=== PATIENT | female | born 1970 | race Caucasian/White ===

== ENCOUNTER 2023-01-20 15:34 | Emergency (ER) | payer OTHER, SELFPAY ==
--- NOTE | 2023-01-20 15:38 | ED.FEMALEGU ---
HPI - Female Genitourinary General Chief complaint: Urogenital-Female Stated complaint: FLANK PAIN Time Seen by Provider: 01/20/23 15:39 Source: patient and RN notes reviewed History of Present Illness HPI Narrative: Patient is a 52-year-old female who presents to urgent care with complaints of right flank pain. Patient states the femur for approximately 1 week. Denies any urinary symptoms such as urgency, frequency, blood in the urine. Patient states that she has always had a trace amount of blood in the urine and was seen by urologist and all the testing came back negative. Patient denies any abdominal pain, nausea, vomiting. Denies any history of kidney stones. Patient denies any recent strenuous activity or heavy lifting. No other acute complaints. No acute distress noted. Patient aware of plan of care. Some parts of this dictation were generated by voice recognition software and may contain typographical and/or grammatical inaccuracies. Related Data Home Medications Medication Instructions Recorded Confirmed buspirone 7.5 mg tablet mg 10/15/19 liraglutide 0.6 mg/0.1 mL (18 mg/3 mg subcut 10/15/19 10/15/19 mL) subcutaneous pen injector (Victoza 3-Jimy) valsartan 160 tablet 10/15/19 mg-hydrochlorothiazide 25 mg tablet Allergies Allergy/AdvReac Type Severity Reaction Status Date / Time lisinopril Allergy Unknown Cough Verified 01/20/23 16:03 Review of Systems Review of Systems: CONSTITUTIONAL: Denies fever, chills, or sweats. EYES: Denies visual changes, redness, or discharge. ENT: Denies rhinorrhea, congestion, sore throat, or otalgia. CARDIOVASCULAR: Denies chest pain, palpitations, or edema. RESPIRATORY: Denies cough or dyspnea. GASTROINTESTINAL: Denies abdominal pain, nausea, vomiting, or diarrhea. GENITOURINARY: Denies dysuria or hematuria. SKIN: Denies rash or itching. MUSCULOSKELETAL: Denies back pain, joint pain, or myalgia. Reports right-sided flank pain NEUROLOGIC: Denies headache, numbness, or weakness. All other systems reviewed are negative, except as documented in HPI. [facility] Family History Family History (System 10/17/20 @ 15:01 by Marcello Lara) Father Hypertension Family history of coronary artery disease Other Family history of cardiovascular disease Family history of chronic obstructive pulmonary disease Social History Social History (System 10/17/20 @ 15:01 by Marcello Lara) Smoking status: Never smoker Alcohol intake: never Comments At the time of my signature, I reviewed and agree with the nursing past medical, surgical, social, and family history. There is no relevant family history pertinent to the patient complaint. Exam Narrative: GENERAL: This is a well-nourished, well-developed patient, in no apparent distress. HEAD: normocephalic, atraumatic. EYES: PERRL. Sclera clear/white. Vision is grossly intact. EARS: External ears normal NOSE: External nose normal with no obvious nasal discharge, nares without redness, no rhinorrhea. THROAT: Mucous membranes moist, posterior pharynx clear. NECK: Neck supple RESPIRATORY: Clear to auscultation. Breath sounds equal bilaterally. No wheezes, rales, or rhonchi. GASTROINTESTINAL: Abdomen soft, non-tender, nondistended. Bowel sounds are active. SKIN: warm, intact with no suspicious lesions or rash, good texture and turgor. NEURO: awake, alert, and oriented to person, place and time. There were no obvious focal neurologic abnormalities. EXTREMITIES: No clubbing, cyanosis, or edema. BACK: Right CVA tenderness exacerbated with movement Course Course Level of Care: Express Care Visit Vital Signs Vital signs: Vital Signs Temperature 98.2 F 01/20/23 15:42 Pulse Rate 76 01/20/23 15:42 Respiratory Rate 16 01/20/23 15:42 Blood Pressure 140/85 01/20/23 15:42 Pulse Oximetry 97 01/20/23 15:42 Oxygen Delivery Room Air 01/20/23 15:42 Temperature 98.2 F 01/20/23 15:42 Pulse Rate 76
[2023-01-20 15:42] VITALS: BP 140/85; PULSE 76; RESP 16; TEMP 36.8; O2SAT 97
== END 2023-01-20 16:16 | disposition home or self-care (01) ==
PROVIDERS: Emergency Provider Nurse Practitioner Family; PCP Family Medicine Sports Medicine
DX: R10.9 Unspecified abdominal pain (principal); E78.00 Pure hypercholesterolemia, unspecified; I10 Essential (primary) hypertension
CPT/HCPCS: 81003; 99203; G0463

== ENCOUNTER 2023-06-27 19:01 | Emergency (ER) | payer OTHER, SELFPAY ==
--- NOTE | 2023-06-27 19:07 | ED.EAR ---
HPI - Ear Problem General Chief complaint: Ear Stated complaint: Head cold;Earache Time Seen by Provider: 06/27/23 19:15 Source: patient and RN notes reviewed Mode of arrival: ambulatory Limitations: no limitations History of Present Illness HPI Narrative: 52-year-old female presents with concern for 2-3 day history of nasal congestion, rhinorrhea, sinus pain, ear pain and pressure. She reports she has tried Sudafed and ibuprofen with little relief. She denies fever, aches, chills, sweats. MD Complaint: ear pain Related Data Home Medications Medication Instructions Recorded Confirmed buspirone 7.5 mg tablet 7.5 mg PO DAILY 10/15/19 06/27/23 valsartan 160 1 tablet PO DAILY 06/27/23 06/27/23 mg-hydrochlorothiazide 25 mg tablet Allergies Allergy/AdvReac Type Severity Reaction Status Date / Time lisinopril Allergy Unknown Cough Verified 06/27/23 19:06 Review of Systems Review of Systems: CONSTITUTIONAL: Denies malaise, chills, sweats, or fever. EYES: Denies visual changes, redness, or discharge. ENT: Reports rhinorrhea, congestion, sinus pain, otalgia CARDIOVASCULAR: Denies chest pain, palpitations, or edema. RESPIRATORY: Reports cough. Denies dyspnea. GASTROINTESTINAL: Denies abdominal pain, nausea, vomiting, diarrhea SKIN: Denies rash or itching. MUSCULOSKELETAL: Denies myalgia. NEUROLOGIC: Denies headache. All systems reviewed & are unremarkable except as noted in HPI and below PMFSH Family History Family History (System 10/17/20 @ 15:01 by Marcello Lara) Father Hypertension Family history of coronary artery disease Other Family history of cardiovascular disease Family history of chronic obstructive pulmonary disease Social History Social History (System 10/17/20 @ 15:01 by Marcello Lara) Smoking status: Never smoker Alcohol intake: never Comments At time of signature, agree with nursing past medical, surgical, social and family history. There is no relevant family history pertinent to the presenting complaint Exam Narrative: GENERAL: Well-appearing, well-nourished, and in no acute distress. HEAD: Normocephalic EYES: PERRLA, conjunctivae clear ENT: Nares clear, turbinates edematous and erythematous, clear discharge. Mucous membranes moist. TM pearly crawford with dull light reflex bilaterally; no tragal tenderness. Oropharynx not erythematous without lesions. Tonsils not enlarged and without exudate, no drooling, no hoarseness, no trismus, uvula midline. NECK: Supple. No lymphadenopathy CHEST: Clear to auscultation, breath sounds equal. No wheezing, rhonchi, rales, or stridor. No respiratory distress, speaks in full sentences. HEART: Regular rate and rhythm. No murmur heard. SKIN: Warm, dry, no rash. NEURO: Alert and oriented x3. PSYCH: Normal mood and affect Course Course Emergency Course: Patient is aware of diagnosis, understands and agrees to treatment plan. Anticipatory guidance given. Patient agrees to follow-up as directed and is aware of reasons to seek care at the emergency department. Portions of this record may have been created with voice recognition software Level of Care: Express Care Visit Vital Signs Vital signs: Reviewed. Critical Care Time Critical Care Time Critical Care Time: No Discharge Plan Discharge Clinical Impression: Upper respiratory infection with cough and congestion Patient Disposition: Home, Self-Care Condition: Stable Instructions: Upper Respiratory Infection (ED) Additional Instructions: Viral illness may last between 7-21 days; antibiotics do not cure viral illness and are NOT recommended at this time. Recommend antihistamine such as Benadryl at night time and Zyrtec or Salma during the day Cough syrup may cause drowsiness; avoid driving or take it at night time. Flonase nasal spray, 2 sprays in each nostril once daily Also, recommend symptomatic treatment includes: rest, fluids, and increase humidity of the air at home.
[2023-06-27 19:09] VITALS: BP 138/79; PULSE 79; RESP 16; TEMP 36.4; O2SAT 96
[2023-06-27 19:11] VITALS: BP 138/79; PULSE 79; RESP 16; TEMP 36.4; O2SAT 96
== END 2023-06-27 19:24 | disposition home or self-care (01) ==
PROVIDERS: Emergency Provider Nurse Practitioner; PCP Family Medicine Sports Medicine
DX: J06.9 Acute upper respiratory infection, unspecified (principal); R05.9 Cough, unspecified; I10 Essential (primary) hypertension; E78.00 Pure hypercholesterolemia, unspecified
CPT/HCPCS: 99213; G0463

== ENCOUNTER 2024-10-03 12:58 | Outpatient (CLI) | payer OTHER, SELFPAY ==
--- NOTE | ~2024-10-03 | MR_ITS ---
MRI of the lumbar spine Clinical History: Back pain Technique: Axial T2-weighted images, and sagittal T1-weighted, T2-weighted, and T2 fat-sat images wer e acquired. Findings: There is no fracture or subluxation of the lumbar spine. Vertebral bodies maintain normal h eight and alignment. No bone marrow signal abnormality seen. At L1-L2, L2-L3, L3-L4, there is no disc bulge or herniation. There are moderate facet joint degenera tive changes at these levels. No spinal canal stenosis or neural foraminal narrowing at these levels. At L4-L5, there is mild disc desiccation without disc bulge or herniation. There is moderate to advan sophia facet arthropathy. No central canal stenosis or neural foraminal narrowing. At L5-S1, there is no disc bulge or herniation. There is moderate facet arthropathy. No central canal stenosis or neural foraminal narrowing. Paravertebral soft tissues are unremarkable. Impression: Facet joint degenerative changes throughout the lumbar spine, and minimal degenerative disc changes, but no spinal canal stenosis or neural foraminal narrowing. Reviewed, dictated and finalized at [facility]. [address] ADMINISTRATOR Impression: Facet joint degenerative changes throughout the lumbar spine, and minimal degen erative disc changes, but no spinal canal stenosis or neural foraminal narrowin nohemy
== END 2024-10-03 12:59 | disposition home or self-care (01) ==
LOC: GOSHIMG 12:59
PROVIDERS: PCP Family Medicine Sports Medicine; Visit Provider Nurse Practitioner Family
DX: M54.50 Low back pain, unspecified (principal)
CPT/HCPCS: 72148

== ENCOUNTER 2024-12-05 13:35 | Emergency (ER) | payer OTHER, SELFPAY ==
--- NOTE | ~2024-12-05 | XR_ITS ---
EXAMINATION: XR chest 2V DATE: 12/05/2024 14:05 INDICATION: Cough and fever. TECHNIQUE: Frontal and lateral views of the chest were obtained. COMPARISON: None. FINDINGS: There is no pneumonia, pleural effusion, or pneumothorax. Cardiomegaly is noted. IMPRESSION: 1. Cardiomegaly. Reviewed, dictated and finalized at location A. DENT DIRECTOR IMPRESSION: 1. Cardiomegaly.
--- NOTE | 2024-12-05 13:37 | ED.URI ---
HPI - URI/Sore Throat General Chief Complaint: Upper Respiratory Infection Stated Complaint: Fever Source: patient and RN notes reviewed Mode of arrival: ambulatory Limitations: no limitations History of Present Illness HPI Narrative: Patient is a 54-year-old female who presents to the [facility] with complaints coughing congestion since . Patient endorses a frequent nonproductive cough that is occasionally productive. She reports chest congestion. Denies shortness of breath. Patient also reports nasal congestion, headache, and generalized body aches. States that her mother was sick with similar symptoms and diagnosed with pneumonia. She reports fevers but states that she has never taken her temperature but has the sweats and chills that go along with fever. Related Data Home Medications ?Medication ?Instructions ?Recorded ?Confirmed ?Last Taken ?Type buspirone 7.5 mg tablet 7.5 mg PO DAILY 10/15/19 06/27/23 Unknown History valsartan 160 1 tablet PO DAILY 06/27/23 06/27/23 Unknown History mg-hydrochlorothiazide 25 mg tablet Allergies Allergy/AdvReac Type Severity Reaction Status Date / Time lisinopril Allergy Unknown Cough Verified 12/05/24 13:45 Review of Systems Review of Systems: CONSTITUTIONAL: Reports fever, chills, and sweats. EYES: Denies visual changes, redness, or discharge. ENT: Denies otalgia and sore throat. Reports congestion. CARDIOVASCULAR: Denies chest pain, palpitations, or edema. RESPIRATORY: Reports cough but denies dyspnea. GASTROINTESTINAL: Denies abdominal pain, nausea, vomiting, or diarrhea. GENITOURINARY: Denies dysuria or hematuria. SKIN: Denies rash or itching. MUSCULOSKELETAL: Denies back pain, joint pain, or myalgia. NEUROLOGIC: Reports headache but denies numbness or weakness. Pertinent positives per HPI. COUNT INCLUDES THE [facility] Family History Family History Father Hypertension Family history of coronary artery disease Other Family history of cardiovascular disease Family history of chronic obstructive pulmonary disease Social History Social History Smoking status: Never smoker Alcohol intake: never Comments At the time of my signature, I reviewed and agree with the nursing past medical, surgical, social, and family history. There is no relevant family history pertinent to the patient complaint. Exam Narrative: GENERAL: This is a well-nourished, well-developed patient, in no apparent distress. HEAD: normocephalic, atraumatic. EYES: PERRL. Sclera clear/white. Vision is grossly intact. EARS: External ears normal, auditory canals clear and without drainage, TMs normal without perforation. Hearing grossly intact. NOSE: External nose normal with no obvious nasal discharge, nares without redness, no rhinorrhea. THROAT: Mucous membranes moist, posterior pharynx clear. NECK: Neck supple, non-tender without lymphadenopathy, masses or thyromegaly. CARDIOVASCULAR: Regular rate and rhythm without murmurs, gallops, or rubs. RESPIRATORY: Clear to auscultation. Breath sounds equal bilaterally. No wheezes, rales, or rhonchi. GASTROINTESTINAL: Abdomen soft, non-tender, nondistended. Bowel sounds are active. No hepato-splenomegaly, or palpable masses. No guarding. SKIN: warm, intact with no suspicious lesions or rash, good texture and turgor. NEURO: awake, alert, and oriented to person, place and time. There were no obvious focal neurologic abnormalities. EXTREMITIES: No clubbing, cyanosis, or edema. No joint tenderness, effusion, or edema noted. BACK: Nontender without deformity or crepitance. No flank tenderness. Course Course Level of Care: Express Care Visit Vital Signs Vital signs: Vital Signs Temperature 98.2 F 12/05/24 13:41 Pulse Rate 74 12/05/24 13:41 Respiratory Rate 16 12/05/24 13:41 Blood Pressure 143/80 H 12/05/24 13:41 Pulse Oximetry 96 12/05/24 13:41 Temperature 98.2 F 12/05/24 13:41 Pulse Rate 74 12/05/24 13:41 Respiratory Rate 16 12/05/24 13:41 Blood Pressure 143/80 H 12/05/24 13:41 Pulse Oximetry 96 12/05/24 13:41 Reviewed MDM - URI/Sore Throat MDM Narrative Medical decision making narrative: Take steroids as directed. May use the inhaler every 4-6 hours as needed for coughing. Increase fluids at home. Avoid any and all smoke. May use a humidifier in the bedroom. Increase your Vitamin C. Follow-up with personal physician in 2-5 days. Differential Diagnosis Differential diagnosis: Likely upper respiratory infection, viral infection, influenza and other (covid, pneumonia) Lab Data Attestation: I reviewed the patient's lab results. Imaging Data Attestation: I personally reviewed and interpreted this imaging study as follows: Radiologist's impression: Close Chest X-Ray (Signed) Alec Brown - 12/05/24 Launch?[facility] [address] [place] [address] XRay Report Signed Patient: Ginny Guido : 1970 MR#: [id number] Age: 54 Acct:[id number] Loc: [id number] ADM Date: 12/05/24Attending Dr: Ordering Physician: Nicole Corado APRN Date of Service: 12/05/24 Procedure(s): XR chest 2V Accession Number(s): [id number] cc: Nicole Corado APRN; PASSPORT APPLICATION EXAMINER PHYSICIAN~ EXAMINATION: XR chest 2V DATE: 12/05/2024 14:05 INDICATION: Cough and fever. TECHNIQUE: Frontal and lateral views of the chest were obtained. COMPARISON: None. FINDINGS: There is no pneumonia, pleural effusion, or pneumothorax. Cardiomegaly is noted. IMPRESSION: 1. Cardiomegaly. Reviewed, dictated and finalized at location A. OR TECHNICAL TRAINER Please be advised this is a medical document. It is intended for [id number] communication. It is written in medical language and may contain unfamiliar abbreviations or verbiage. Medical documents are intended to carry relevant information, facts as evident, and the clinical opinion of the practitioner at the time of the encounter. This report may have been done utilizing a voice recognition system. Attempts have been made to correct errors. However, there may be uncorrected grammatical, spelling, and recognition errors present. The file time of this note does not necessarily represent the time of service. Dictated By: Alec Brown MD 12/05/24 1408 Signed By: <Electronically signed by Alec Brown MD in OV> 12/05/24 1409 Critical Care Time Critical Care Time Critical Care Time: No Discharge Plan Discharge Clinical Impression: Acute viral bronchitis Patient Disposition: Home, Self-Care Condition: Stable Instructions: Acute Bronchitis (ED) Additional Instructions: Take steroids as directed. May use the inhaler every 4-6 hours as needed for coughing. Increase fluids at home. Avoid any and all smoke. May use a humidifier in the bedroom. Increase your Vitamin C. Follow-up with personal physician in 2-5 days. Patient Language: Malaysian Prescriptions: New prednisone 50 mg tablet 50 mg PO DAILY 5 Days Qty: 5 0RF albuterol sulfate [Ventolin HFA] 90 mcg/actuation HFA aerosol inhaler 2 puff inhalation QID PRN (Reason: shortness of breath or wheezing) Qty: 6.7 0RF benzonatate 100 mg capsule 100 mg PO TID PRN (Reason: cough) Qty: 20 0RF fluticasone propionate [24 Hour Allergy Relief] 50 mcg/actuation spray,suspension 1 spray intranasal BID Qty: 16 0RF Rx Instructions: administer into each nostril No Action buspirone 7.5 mg tablet 7.5 mg PO DAILY valsartan-hydrochlorothiazide 160-25 mg tablet 1 tablet PO DAILY fluticasone propionate [Flonase Allergy Relief] 50 mcg/actuation spray,suspension 2 spray NASAL DAILY 14 Days Qty: 15.8 0RF Rx Instructions: administer into each nostril Follow-up/Referrals: PHYSICIAN,PASSPORT APPLICATION EXAMINER [Primary Care Provider] - Time of Disposition: 14:29
[2024-12-05 13:41] VITALS: BP 143/80; PULSE 74; RESP 16; TEMP 36.8; O2SAT 96
[2024-12-05 14:35] LABS: EDCOVIDSCREEN Negative (Negative); EDINFLUASCREEN Negative (Negative); EDINFLUBSCREEN Negative (Negative)
== END 2024-12-05 14:32 | disposition home or self-care (01) ==
PROVIDERS: Emergency Provider Nurse Practitioner
DX: J20.8 Acute bronchitis due to other specified organisms (principal); Z20.822 Contact with and (suspected) exposure to COVID-19; I10 Essential (primary) hypertension; E78.00 Pure hypercholesterolemia, unspecified
CPT/HCPCS: 71046; 87426; 87804; 99213; G0463

== ENCOUNTER 2025-03-20 13:59 | Emergency (ER) | payer OTHER, SELFPAY ==
[2025-03-20 14:11] VITALS: BP 162/93; PULSE 85; RESP 18; TEMP 37.1; O2SAT 99
--- NOTE | 2025-03-20 14:21 | ED_ITS ---
HPI - Dental/Oral General Chief complaint: Dental/Oral Stated complaint: Tooth Pain Time Seen by Provider: 03/20/25 14:21 Source: patient, RN notes reviewed and old records reviewed Mode of arrival: ambulatory Limitations: no limitations History of Present Illness HPI Narrative: 54-year-old female presents to the [facility] with complaints of pain and swelling to the left lower jaw. Has poor dentition. States it started 2-3 days ago Related Data Home Medications ?Medication ?Instructions ?Recorded ?Confirmed ?Last Taken ?Type buspirone 7.5 mg tablet 7.5 mg PO DAILY 10/15/19 06/27/23 Unknown History valsartan 160 1 tablet PO DAILY 06/27/23 06/27/23 Unknown History mg-hydrochlorothiazide 25 mg tablet Allergies Allergy/AdvReac Type Severity Reaction Status Date / Time lisinopril Allergy Unknown Cough Verified 03/20/25 14:09 Review of Systems Review of Systems: All systems reviewed & are unremarkable except as noted in HPI and below Constitutional: Constitutional: Reports no additional constitutional complaints ENT: Reports as per HPI and Reports dental pain Cardiovascular: Cardiovascular: Reports no additional cardiovascular complaints, Denies chest pain and Denies dyspnea Respiratory: Respiratory: Reports no additional respiratory complaints, Denies chest congestion, Denies cough and Denies dyspnea Musculoskeletal: Musculoskeletal: Reports no additional musculoskeletal complaints Integumentary/Breasts: Skin/Breast: Reports system reviewed and no additional complaints, except as docu [facility] Family History Family History Father Hypertension Family history of coronary artery disease Other Family history of cardiovascular disease Family history of chronic obstructive pulmonary disease Social History Social History Smoking status: Never smoker Alcohol intake: never Comments At the time of my signature, I reviewed and agree with the nursing past medical, surgical, social, and family history. There is no relevant family history pertinent to the patient complaint. Exam Const: General: cooperative, healthy appearing, comfortable, no acute distress, well developed, alert and well nourished Nutritional Appearance: well nourished and obese Orientation/consciousness: patient oriented x3 Limitations: no limitations HENMT: Head: normal to inspection Ears: hearing grossly normal bilaterally, external ears normal, TM's normal bilaterally, EAC's normal, mastoids normal and no periauricular adenopathy Face/Nose/Sinus: Normal external nose present Mouth: Yes lip normal, Yes tongue normal and Yes moist mucous membranes Teeth and gingiva: abnormal tooth and associated gingiva lower left tender, with associated gingival edema and other (Decayed teeth) Eyes: General: appearance normal, both eyes and all related structures Alignment and Position: alignment normal Neck: Neck: normal visual inspection, full ROM, no lymphadenopathy and no meningeal signs Chest: Chest palpation & inspection: normal inspection of the chest Resp: Effort & Inspection: normal respiratory effort and able to speak in complete sentences Auscultation: clear to auscultation bilaterally, no crackles, no rales, no rhonchi and no wheezes Cardio: Rate: regular rate Skin: General skin exam: normal color and no rashes or lesions noted Neuro: General: patient oriented x3, gait normal, moves all extremities and no meningeal signs Cognition (Neuro): normal cognition Speech: normal speech Gait exam (Neuro): Normal gait present Extrem: General: normal to inspection, full ROM, capillary refill normal and normal gait Psych: Appearance: grossly normal and well kempt Mental Status: mental status grossly normal Speech and movement: Normal speech and movement present and Clear speech present Affect: normal affect Attitude: cooperative Course Course Level of Care: Express Care Visit Vital Signs Vital signs: Vital Signs Temperature 98.7 F 03/20/25 14:11 Pulse Rate 85 03/20/25 14:11 Respiratory Rate 18 03/20/25 14:11 Blood Pressure 162/93 H 03/20/25 14:11 Pulse Oximetry 99 03/20/25 14:11 Oxygen Delivery Room Air 03/20/25 14:11 Temperature 98.7 F 03/20/25 14:11 Pulse Rate 85 03/20/25 14:11 Respiratory Rate 18 03/20/25 14:11 Blood Pressure 162/93 H 03/20/25 14:11 Pulse Oximetry 99 03/20/25 14:11 Oxygen Delivery Room Air 03/20/25 14:11 Reviewed MDM - Dental/Oral MDM Narrative Medical decision making narrative: Patient presents with concerns for dental infection, swelling, erythema noted to the gingiva. Patient is nontoxic vitals are stable except blood pressure mildly elevated. Patient does take blood pressure medication daily. Patient appropriate for outpatient treatment with close follow-up, list of dental providers given to patient. Discharge instructions reviewed with patient, as well as provided in writing per nursing staff. The instructions also include specific and strict return/GO TO THE ER as well as f/u information. All questions have been answered, and the patient deny any further questions with discharge and discharge plan. Some parts of this dictation were generated by voice recognition software and may contain typographical and/or grammatical inaccuracies. Differential Diagnosis Differential diagnosis: Likely gingival abscess, dental caries, toothache, dental abscess, fracture of tooth and aphthous ulcer Critical Care Time Critical Care Time Critical Care Time: No Discharge Plan Discharge Clinical Impression: Dental abscess, Dental decay, Gingivitis Patient Disposition: Home Condition: Stable Instructions: Dental Abscess (ED) Additional Instructions: Finish the entire course of antibiotics & use a good mouthwash After every time you eat be sure to use salt water rinses. Apply ice to face to help with pain. Take Tylenol alternating with Motrin as needed for pain. You can alternate every 4 hours You need to follow-up with a dental provider as soon as possible for further evaluation and treatment. A list of dental providers has been given to you Follow up with a Primary Care Provider (PCP) about medical needs. A PCP can help keep you healthy by preventive medicine and screening. Go to the ER for New or worsening symptoms. Patient Language: [place] Prescriptions: New amoxicillin 875 mg tablet 875 mg PO Q12H Qty: 20 0RF No Action buspirone 7.5 mg tablet 7.5 mg PO DAILY valsartan-hydrochlorothiazide 160-25 mg tablet 1 tablet PO DAILY fluticasone propionate [Flonase Allergy Relief] 50 mcg/actuation spray,suspension 2 spray NASAL DAILY 14 Days Qty: 15.8 0RF Rx Instructions: administer into each nostril albuterol sulfate [Ventolin HFA] 90 mcg/actuation HFA aerosol inhaler 2 puff inhalation QID PRN (Reason: shortness of breath or wheezing) Qty: 6.7 0RF fluticasone propionate [24 Hour Allergy Relief] 50 mcg/actuation spray,suspension 1 spray intranasal BID Qty: 16 0RF Rx Instructions: administer into each nostril Follow-up/Referrals: Roseline Portillo, RT(R) [Primary Care Provider] - Stand Alone Forms: Work/School Release IP Time of Disposition: 14:29
== END 2025-03-20 14:33 | disposition home or self-care (01) ==
PROVIDERS: Emergency Provider Nurse Practitioner
DX: K04.7 Periapical abscess without sinus (principal); K02.9 Dental caries, unspecified; K05.10 Chronic gingivitis, plaque induced; I10 Essential (primary) hypertension; E78.00 Pure hypercholesterolemia, unspecified
CPT/HCPCS: 99213; G0463

== ENCOUNTER 2025-08-17 13:43 | Emergency (ER) | payer OTHER, SELFPAY ==
[2025-08-17 13:55] VITALS: BP 136/85; PULSE 83; RESP 16; TEMP 36.4; O2SAT 96
--- NOTE | 2025-08-17 14:39 | ED.GENADULT ---
HPI - General Adult General Chief complaint: Dental/Oral Stated complaint: INFECTED TOOTH Source: patient Mode of arrival: ambulatory Limitations: no limitations History of Present Illness HPI narrative: Patient presents for evaluation of dental pain for the past 5 days. She states pain is constant, throbbing, 7/10. She has taken ibuprofen without improvement in her symptoms. She does not smoke. She denies any fever, chills, nausea, trismus, problems handling secretions. Related Data Home Medications ?Medication ?Instructions ?Recorded ?Confirmed ?Last Taken ?Type buspirone 7.5 mg tablet 7.5 mg PO DAILY 10/15/19 08/17/25 Unknown History valsartan 160 1 tablet PO DAILY 06/27/23 08/17/25 Unknown History mg-hydrochlorothiazide 25 mg tablet Allergies Allergy/AdvReac Type Severity Reaction Status Date / Time lisinopril Allergy Unknown Cough Verified 08/17/25 13:53 Review of Systems Review of Systems: CONSTITUTIONAL: Denies fever, chills, or sweats. EYES: Denies visual changes, redness, or discharge. ENT: Reports lower dental pain. Denies rhinorrhea, congestion, sore throat, or otalgia. CARDIOVASCULAR: Denies chest pain, palpitations, or edema. RESPIRATORY: Denies cough or dyspnea. GASTROINTESTINAL: Denies abdominal pain, nausea, vomiting, or diarrhea. GENITOURINARY: Denies dysuria or hematuria. SKIN: Denies rash or itching. MUSCULOSKELETAL: Denies back pain, joint pain, or myalgia. NEUROLOGIC: Denies headache, numbness, dizziness, or weakness. PSYCHIATRIC: Denies anxiety or depression. [facility] Past Medical History Medical History Hypertension Anxiety Surgical History Surgical History No pertinent past surgical history Family History Family History Father Hypertension Family history of coronary artery disease Other Family history of cardiovascular disease Family history of chronic obstructive pulmonary disease Social History Social History Smoking status: Never smoker Alcohol intake: never Gender identity (if verbalized by the patient): Female Spiritual care concerns: No Exam Narrative: GENERAL: Well-appearing, well-nourished, and in no acute distress. HEAD: Normocephalic, atraumatic. EYES: PERRLA and EOMI. ENT: Nares clear, no rhinorrhea or epistaxis. Mucous membranes moist. diffuse dental decay, multiple fractured teeth, with erosion gumline. There is tenderness in the gumline adjacent to tooth #24 and #25. no visible or palpable drainable fluid collection. Bilateral TMs pearly crawford nonbulging NECK: Supple. No adenopathy or masses. No carotid bruits or JVD CHEST: Clear to auscultation. No respiratory distress. No wheezes rales or rhonchi HEART: Regular rate and rhythm. No murmur heard. Normal peripheral pulses. ABDOMEN: Soft, nontender, nondistended, normal active bowel sounds. EXTREMITIES: Normal range of motion. No edema. SKIN: Warm, dry, no rash. NEURO: No focal deficits. Alert and oriented x3. PSYCH: Normal mood and affect. Course Course Emergency Course: This is a 55-year-old female who presented for evaluation of dental pain. She has diffuse dental decay. There is tenderness in the gumline adjacent to tooth #24 and tooth #25 without a drainable fluid collection. There is no swelling in the anterior neck to suggest Per's angina. Treat with penicillin and hydrocodone. Follow-up with dentist. In the event that she experiences swelling in the anterior neck, she needs to go to the emergency department. Patient in agreement with plan of care. Level of Care: Express Care Visit Vital Signs Vital signs: Vital Signs Temperature 36.4 C 08/17/25 13:55 Pulse Rate 83 08/17/25 13:55 Respiratory Rate 16 08/17/25 13:55 Blood Pressure 136/85 08/17/25 13:55 Pulse Oximetry 96 08/17/25 13:55 Temperature 36.4 C 08/17/25 13:55 Pulse Rate 83 08/17/25 13:55 Respiratory Rate 16 08/17/25 13:55 Blood Pressure 136/85 08/17/25 13:55 Pulse Oximetry 96 08/17/25 13:55 Medical Decision Making Vital Signs Vital Signs: Vital Signs Temperature 36.4 C 08/17/25 13:55 Pulse Rate 83 08/17/25 13:55 Respiratory Rate 16 08/17/25 13:55 Blood Pressure 136/85 08/17/25 13:55 Pulse Oximetry 96 08/17/25 13:55 Temperature 36.4 C 08/17/25 13:55 Pulse Rate 83 08/17/25 13:55 Respiratory Rate 16 08/17/25 13:55 Blood Pressure 136/85 08/17/25 13:55 Pulse Oximetry 96 08/17/25 13:55 Discharge Plan Discharge Clinical Impression: Dental infection Patient Disposition: Home Condition: Stable Instructions: Antibiotic Form, Toothache (ED) Patient Language: Danish Prescriptions: New penicillin V potassium 500 mg tablet 500 mg PO Q6H 10 Days Qty: 40 0RF hydrocodone-acetaminophen 5-325 mg tablet 1 - 2 tablet PO Q8H PRN (Reason: pain) Qty: 12 0RF No Action buspirone 7.5 mg tablet 7.5 mg PO DAILY valsartan-hydrochlorothiazide 160-25 mg tablet 1 tablet PO DAILY albuterol sulfate [Ventolin HFA] 90 mcg/actuation HFA aerosol inhaler 2 puff inhalation QID PRN (Reason: shortness of breath or wheezing) Qty: 6.7 0RF Follow-up/Referrals: Jo Ann Norris DO [Physician, Family Practice] Time of Disposition: 14:34
== END 2025-08-17 14:36 | disposition home or self-care (01) ==
PROVIDERS: Emergency Provider Nurse Practitioner
DX: K04.7 Periapical abscess without sinus (principal); I10 Essential (primary) hypertension; F41.9 Anxiety disorder, unspecified
CPT/HCPCS: 99213; G0463